=== PATIENT | female | born 1940 | race Caucasian/White ===

== ENCOUNTER 2017-12-20 00:09 | Emergency (ER) | payer MEDICARE ==
[2017-12-20] MEDS: HYDROCODONE/APAP (5/325) TAB PO (02:55)
== END 2017-12-20 05:06 | disposition home or self-care (01) ==
LOC: FTE 05:06
DX: M25.532 Pain in left wrist (principal); M79.89 Other specified soft tissue disorders; I10 Essential (primary) hypertension
CPT/HCPCS: 73110; 73110-LT; 99283-25